=== PATIENT | male | born 1955 | race Caucasian/White ===

== ENCOUNTER → 2016-08-13 | Outpatient (CLI) | payer MEDICARE | END | disposition disaster alternative care site (69) | LOC: LFPA 08:54 | DX: Z48.23 Encounter for aftercare following liver transplant (principal); Z94.4 Liver transplant status ==

== ENCOUNTER → 2016-08-31 | Outpatient (CLI) | payer MEDICARE | END | disposition disaster alternative care site (69) | LOC: LGSMG 14:18 | DX: Z48.23 Encounter for aftercare following liver transplant (principal); Z94.4 Liver transplant status ==

== ENCOUNTER → 2016-10-01 | Outpatient (CLI) | payer MEDICARE | END | disposition disaster alternative care site (69) | LOC: GRAD 10:03 | DX: R10.9 Unspecified abdominal pain (principal); R18.8 Other ascites; K63.89 Other specified diseases of intestine; J90 Pleural effusion, not elsewhere classified; J98.11 Atelectasis; I31.3 Pericardial effusion (noninflammatory) ==

== ENCOUNTER → 2016-11-20 | Outpatient (CLI) | payer MEDICARE | END | disposition disaster alternative care site (69) | LOC: GRAD 08:07 | DX: C22.0 Liver cell carcinoma (principal); J94.8 Other specified pleural conditions; K86.89 Other specified diseases of pancreas; Z96.89 Presence of other specified functional implants; Z90.49 Acquired absence of other specified parts of digestive tract ==